=== PATIENT | male | born 1965 | race Caucasian/White ===

== ENCOUNTER 2021-04-23 15:50 | Inpatient (IN) ==
[2021-04-23] MEDS ORDERED: Ipratropium/Albuterol Neb 3 ML IH ONE (16:36)
[2021-04-23 17:06] LABS: Basophils % 0.2 %; Eosinophils # 0.1 K/mcL (0.0-0.6); Eosinophils % 0.5 %; Hematocrit 40.3 % (37.5-50.1); Hemoglobin 13.3 g/dL (12.9-16.9); Immature Granulocytes % 0.4 % (0-4); Lymphocytes # 2.1 K/mcL (0.6-4.6); Lymphocytes % 17.5 %; Mean Platelet Volume 10.7 fL (9.4-12.4); Monocytes # 1.4 K/mcL (0.0-1.3); Monocytes % 11.3 %; Neutrophils # 8.4 K/mcL (1.6-8.9); Platelet Count 227 K/mcL (140-400); Red Blood Count 4.58 M/mcL (4.19-5.50); Red Cell Distribution Width 14.9 % (11.5-14.5); Segmented Neutrophils % 70.1 %
[2021-04-23 17:16] LABS: INR 1.1; Prothrombin Time 12.3 Seconds (9.4-12.1)
[2021-04-23 17:18] LABS: Activated Partial Thrombo Time 28.4 Seconds (26.0-36.0)
[2021-04-23 17:30] LABS: Alanine Aminotransferase 40 Units/L (7-52); Albumin 3.5 g/dL (3.5-5.7); Albumin/Globulin Ratio 1.6 (1.1-2.2); Alkaline Phosphatase 45 Units/L (34-104); Aspartate Amino Transferase 20 Units/L (13-39); BUN/Creatinine Ratio 17 (6-26); Bilirubin,Direct 0.1 mg/dL (0.0-0.2); Bilirubin,Indirect 0.5 mg/dL (0.0-1.0); Bilirubin,Total 0.6 mg/dL (0.3-1.0); Blood Urea Nitrogen 21 mg/dL (6-20); Calcium 8.4 mg/dL (8.6-10.3); Carbon Dioxide 23 mEq/L (23-29); Chloride 108 mEq/L (98-107); Globulin 2.2 g/dL (2.4-3.5); Glucose 102 mg/dL (70-105); Osmolality,Calculated 291 (280-300); Potassium 4.2 mEq/L (3.5-5.1); Sodium 139 mEq/L (136-145); Total Protein 5.7 g/dL (6.4-8.9); Troponin I 0.05 ng/mL (< 0.04); eGFR For African Americans > 60 (> 60); eGFR For Non-African Americans > 60 (> 60)
[2021-04-23] MEDS ORDERED: Isovue-370 500 ML BOTTLE IVP ONE (17:57)
[2021-04-23] MEDS ORDERED: Furosemide 40 MG/4 ML VIAL IVP ONE (18:55)
[2021-04-23] MEDS ORDERED: Aspirin 325 MG TABLET PO ONE (18:56)
[2021-04-23] MEDS ORDERED: Melatonin 3 MG TABLET PO PRN (20:27)
[2021-04-23] MEDS ORDERED: Acetaminophen 325 MG TABLET PO PRN (20:27)
[2021-04-23] MEDS ORDERED: *HR* HYDROcodone/Acet 5/325 mg TABLET PO PRN (20:27)
[2021-04-23] MEDS ORDERED: *HR* OxyCODONE Immed Rel 5 MG TABLET PO PRN (20:27)
[2021-04-23] MEDS ORDERED: Ondansetron ODT 4 MG TAB.RAPDIS SL PRN (20:27)
[2021-04-23] MEDS ORDERED: Naloxone 0.4 MG/ML INJ IVP PRN (20:27)
[2021-04-23] MEDS ORDERED: Perflutren Lipid Microsphere 1.3 ML in 0.9 % Sodium Chloride 8.7 ML IVP PRN (20:30)
[2021-04-23] MEDS ORDERED: Ipratropium/Albuterol Neb 3 ML IH PRN (21:12)
[2021-04-23 21:24] LABS: Influenza A PCR Negative (Negative); Influenza B PCR Negative (Negative); Resp. Syncytial Virus PCR Negative (Negative)
[2021-04-23 21:25] LABS: SARS-CoV-2 by PCR (In House) Negative (Negative)
[2021-04-23] MEDS ORDERED: rOPINIRole 0.25 MG TABLET PO PRN (23:26)
[2021-04-23] MEDS ORDERED: Albuterol 2.5 MG/3 ML NEBULIZER IH PRN (23:26)
[2021-04-23] MEDS ORDERED: Gabapentin 300 MG CAPSULE PO PRN (23:33)
[2021-04-23] MEDS ORDERED: Topiramate 25 MG TABLET PO PRN (23:34)
[2021-04-24 05:22] LABS: Hematocrit 42.1 % (37.5-50.1); Hemoglobin 13.5 g/dL (12.9-16.9); Mean Corpuscular HGB Conc 32.1 g/dL (31.6-35.5); Mean Corpuscular Hemoglobin 28.4 pg (28.0-33.3); Mean Corpuscular Volume 88.6 fL (83.0-100.0); Mean Platelet Volume 10.7 fL (9.4-12.4); Platelet Count 224 K/mcL (140-400); Red Blood Count 4.75 M/mcL (4.19-5.50)
[2021-04-24 05:41] LABS: BUN/Creatinine Ratio 17 (6-26); Blood Urea Nitrogen 22 mg/dL (6-20); Calcium 8.3 mg/dL (8.6-10.3); Carbon Dioxide 26 mEq/L (23-29); Chloride 104 mEq/L (98-107); Chol/HDL Ratio 4.8 (0-4.9); Cholesterol 171 mg/dL (< 200); Glucose 99 mg/dL (70-105); HDL Cholesterol 36 mg/dL (40-59); LDL Cholesterol,Calculated 114 mg/dL (< 100); Magnesium 2.3 mg/dL (1.6-2.6); Osmolality,Calculated 289 (280-300); Phosphorous 3.7 mg/dL (2.7-4.5); Sodium 138 mEq/L (136-145); Triglycerides 107 mg/dL (< 150); eGFR For African Americans > 60 (> 60); eGFR For Non-African Americans 59 (> 60)
[2021-04-24] MEDS: Budesonide/Formoterol 160/4.5 1 PUFF INH IH SCH ×2 (07:44→20:00)
[2021-04-24] MEDS ORDERED: Perflutren Lipid Microsphere 1.3 ML in 0.9 % Sodium Chloride 8.7 ML IVP PRN (07:46)
[2021-04-24] MEDS ORDERED: Furosemide 20 MG TABLET PO SCH ×2 (08:00→09:00)
[2021-04-24] MEDS: Aspirin 81 MG TAB.CHEW PO SCH (08:59)
[2021-04-24] MEDS: carvediloL 6.25 MG TABLET PO SCH ×2 (08:59→18:00)
[2021-04-24] MEDS ORDERED: Furosemide 20 MG/2 ML VIAL IVP SCH (09:00)
[2021-04-24] MEDS: *HR* Heparin 5,000 UNIT/ML VIAL SQ SCH (18:01)
[2021-04-24] MEDS: Furosemide 20 MG/2 ML VIAL IVP SCH (21:35)
[2021-04-25] MEDS: *HR* Heparin 5,000 UNIT/ML VIAL SQ SCH ×2 (05:47→17:33)
[2021-04-25] MEDS: carvediloL 6.25 MG TABLET PO SCH ×2 (08:02→17:33)
[2021-04-25] MEDS: Aspirin 81 MG TAB.CHEW PO SCH (08:02)
[2021-04-25] MEDS: Furosemide 20 MG/2 ML VIAL IVP SCH ×2 (08:02→20:17)
[2021-04-25] MEDS: Budesonide/Formoterol 160/4.5 1 PUFF INH IH SCH ×2 (08:03→20:06)
[2021-04-26 03:05] LABS: BUN/Creatinine Ratio 17 (6-26); Blood Urea Nitrogen 20 mg/dL (6-20); Calcium 8.8 mg/dL (8.6-10.3); Carbon Dioxide 26 mEq/L (23-29); Chloride 104 mEq/L (98-107); Glucose 109 mg/dL (70-105); Osmolality,Calculated 291 (280-300); Sodium 139 mEq/L (136-145); eGFR For African Americans > 60 (> 60); eGFR For Non-African Americans > 60 (> 60)
[2021-04-26] MEDS: *HR* Heparin 5,000 UNIT/ML VIAL SQ SCH ×2 (05:22→16:48)
[2021-04-26] MEDS: Budesonide/Formoterol 160/4.5 1 PUFF INH IH SCH ×2 (07:50→20:30)
[2021-04-26] MEDS: carvediloL 6.25 MG TABLET PO SCH ×2 (08:37→16:48)
[2021-04-26] MEDS: Furosemide 20 MG/2 ML VIAL IVP SCH ×2 (08:38→20:47)
[2021-04-26] MEDS: Aspirin 81 MG TAB.CHEW PO SCH (08:38)
[2021-04-27] MEDS: *HR* Heparin 5,000 UNIT/ML VIAL SQ SCH ×2 (05:02→16:46)
[2021-04-27] MEDS: carvediloL 6.25 MG TABLET PO SCH ×2 (07:42→16:46)
[2021-04-27] MEDS: Furosemide 20 MG/2 ML VIAL IVP SCH (07:42)
[2021-04-27] MEDS: Aspirin 81 MG TAB.CHEW PO SCH (07:42)
[2021-04-27] MEDS: Budesonide/Formoterol 160/4.5 1 PUFF INH IH SCH ×2 (07:56→20:22)
[2021-04-27] MEDS ORDERED: Heparin 1,000 UNITS/500 mL 500 ML ONE (08:19)
[2021-04-27] MEDS ORDERED: Nitroglycerin 1,000 MCG/5 ML VIAL IV ONE (08:19)
[2021-04-27] MEDS ORDERED: ISOVUE-370 200 ML INFUS..BTL ONE (08:19)
[2021-04-27] MEDS ORDERED: 0.9 % Sodium Chloride 1,000 ML ONE ×2 (08:19→10:15)
[2021-04-27] MEDS ORDERED: *HR* Heparin 10,000 UNIT/10 ML VIAL ONE (08:19)
[2021-04-27] MEDS ORDERED: *HR* FentaNYL (PF) 100 MCG/2 ML VIAL ONE (08:52)
[2021-04-27] MEDS ORDERED: *HR* Midazolam HCl 2 MG/2 ML VIAL ONE (08:52)
[2021-04-27 14:51] LABS: BUN/Creatinine Ratio 23 (6-26); Blood Urea Nitrogen 28 mg/dL (6-20); Carbon Dioxide 29 mEq/L (23-29); Chloride 102 mEq/L (98-107); Glucose 114 mg/dL (70-105); Osmolality,Calculated 288 (280-300); Potassium 3.6 mEq/L (3.5-5.1); Sodium 136 mEq/L (136-145); eGFR For African Americans > 60 (> 60); eGFR For Non-African Americans > 60 (> 60)
[2021-04-27] MEDS: Furosemide 20 MG TABLET PO SCH (16:45)
[2021-04-28] MEDS: *HR* Heparin 5,000 UNIT/ML VIAL SQ SCH (05:12)
[2021-04-28] MEDS: Aspirin 81 MG TAB.CHEW PO SCH (07:27)
[2021-04-28] MEDS: carvediloL 6.25 MG TABLET PO SCH (07:28)
[2021-04-28] MEDS: Furosemide 20 MG TABLET PO SCH (07:28)
[2021-04-28] MEDS: Budesonide/Formoterol 160/4.5 1 PUFF INH IH SCH (07:57)
[2021-04-28 14:36] VITALS: BP 104/69; PULSE 92; TEMP 98.3; O2SAT 97
== END 2021-04-28 14:39 | disposition home or self-care (01) | DRG 192 ==
LOC: 3BNU 15:50 → EMEROOARM 15:50 → SUATTDRO 20:35 → 3BNU 21:50
PROVIDERS: ADMIT Family Medicine; ATTEND Registered Nurse

== ENCOUNTER 2021-10-15 06:27 | Observation (INO) ==
[2021-10-15 08:03] LABS: BUN/Creatinine Ratio 17 (6-26); Blood Urea Nitrogen 20 mg/dL (6-20); Calcium 9.1 mg/dL (8.6-10.3); Carbon Dioxide 27 mEq/L (23-29); Chloride 104 mEq/L (98-107); Glucose 115 mg/dL (70-105); Osmolality,Calculated 288 (280-300); Potassium 3.8 mEq/L (3.5-5.1); Sodium 137 mEq/L (136-145)
[2021-10-15 08:04] LABS: Troponin I < 0.03 ng/mL (< 0.04)
[2021-10-15 08:08] LABS: Basophils % 0.2 %; Eosinophils # 0.2 K/mcL (0.0-0.6); Eosinophils % 1.6 %; Hematocrit 46.7 % (37.5-50.1); Hemoglobin 15.4 g/dL (12.9-16.9); Immature Granulocytes % 0.7 % (0-4); Lymphocytes # 2.1 K/mcL (0.6-4.6); Lymphocytes % 22.2 %; Mean Platelet Volume 10.4 fL (9.4-12.4); Monocytes # 1.1 K/mcL (0.0-1.3); Monocytes % 11.4 %; Platelet Count 246 K/mcL (140-400); Red Blood Count 5.13 M/mcL (4.19-5.50); Red Cell Distribution Width 12.5 % (11.5-14.5); Segmented Neutrophils % 63.9 %; White Blood Count 9.5 K/mcL (4.3-11.1)
[2021-10-15] MEDS ORDERED: Gabapentin 300 MG CAPSULE PO PRN (19:10)
[2021-10-15] MEDS ORDERED: Topiramate 25 MG TABLET PO PRN (19:10)
[2021-10-15] MEDS: Budesonide/Formoterol 160/4.5 1 PUFF INH IH SCH (20:03)
[2021-10-15] MEDS: carvediloL 6.25 MG TABLET PO SCH (20:49)
[2021-10-15] MEDS: Sacubitril/Valsartan 49/51 MG 1 TABLET PO SCH (20:49)
[2021-10-15] MEDS ORDERED: rOPINIRole 0.25 MG TABLET PO SCH (21:00)
[2021-10-16] MEDS ORDERED: Furosemide 20 MG TABLET PO SCH (08:00)
[2021-10-16 08:44] VITALS: TEMP 97.7
[2021-10-16] MEDS: Sacubitril/Valsartan 49/51 MG 1 TABLET PO SCH (08:44)
[2021-10-16] MEDS: carvediloL 6.25 MG TABLET PO SCH (08:44)
[2021-10-16] MEDS ORDERED: Aspirin 81 MG TAB.CHEW PO SCH (09:00)
[2021-10-16] MEDS ORDERED: Spironolactone 25 MG TABLET PO SCH (09:00)
[2021-10-16] MEDS ORDERED: Dapagliflozin Propanediol [Farxiga] 10 MG Tablet PO SCH (09:00)
[2021-10-16] MEDS: Budesonide/Formoterol 160/4.5 1 PUFF INH IH SCH (10:36)
[2021-10-16 12:19] VITALS: BP 124/72; PULSE 81; O2SAT 96
== END 2021-10-16 16:50 | disposition home or self-care (01) ==
LOC: 2NENU 06:27 → EMEROOARM 06:27 → SUATTDRO 12:15 → 2NENU 14:02
PROVIDERS: ADMIT Student in an Organized Health Care Education/Training Program; ATTEND Internal Medicine